=== PATIENT | female | born 1965 | race American Indian/Alaskan Native ===

== ENCOUNTER 2019-09-12 13:09 | Emergency (ER) | payer MEDICAID, OTHER ==
--- NOTE | 2019-09-12 14:28 | EDM.PDOC ---
ED HPI GENERAL MEDICAL PROBLEM - General Chief Complaint: Upper Extremity Injury/Pain Stated Complaint: POSSIBLE WRIST CRACK Time Seen by Provider: 09/12/19 13:44 Source of Information: Reports: Patient, RN - History of Present Illness INITIAL COMMENTS - FREE TEXT/NARRATIVE: 53-year-old female who presents to ER with left wrist pain. Patient reports slipping on ice at [facility] one day ago and landing on an outstretched left hand. She states she was able to use her left hand after the incident. Pain and swelling was noted when she woke up from bed after the incident. She rates it as a 03/09 and is wearing a sling she had at home. She has tried ibuprofen with little relief. She denies any prior injury to her left wrist/hand. She denies any numbness or tingling. She is not able to bear weight on her left hand/wrist at this time. Left Wrist Pain Score (Numeric/FACES): 10 - Related Data Allergies Allergy/AdvReac Type Severity Reaction Status Date / Time Penicillins Allergy Anaphylactic Verified 09/12/19 13:43 Shock Past Medical History Musculoskeletal History: Reports: Fibromyalgia Psychiatric History: Reports: Depression Social & Family History - Tobacco Use Smoking Status *Q: Current Every Day Smoker Years of Tobacco use: 20 Packs/Tins Daily: 0.7 Second Hand Smoke Exposure: Yes - Recreational Drug Use Recreational Drug Use: No Review of Systems - Review of Systems Review Of Systems: Comprehensive ROS is negative, except as noted in HPI. ED EXAM, GENERAL - Physical Exam Exam: See Below Exam Limited By: No Limitations General Appearance: Alert, Moderate Distress Peripheral Pulses: 3+: Brachial (L), Radial (L) Extremities: Normal Capillary Refill, Joint Swelling (of left wrist), Limited Range of Motion (of the left wrist due to pain) Neurological: Alert, Oriented, No Motor/Sensory Deficits Psychiatric: Normal Affect, Normal Mood Skin Exam: Warm, Intact Course - Vital Signs Last Recorded V/S: Last Vital Signs Temp 97.4 F 09/12/19 13:39 Pulse 78 09/12/19 13:39 Resp 18 09/12/19 13:39 BP 122/75 09/12/19 13:39 Pulse Ox 93 L 09/12/19 13:39 - Radiology Interpretation Free Text/Narrative:: Xray of Left Hand Degenerative joint disease at the first carpometacarpal joint and negative for a fracture Xray of the left wrist Mild soft Tissue swelling. No acute bony abnormality - Re-Assessments/Exams Free Text/Narrative Re-Assessment/Exam: Reviewed Xray results with patient. Wrist splint applied and patient reports relief. . Encouraged Ice/heat application intermittently. More instructions included in AVS. Departure - Departure Time of Disposition: 14:26 Disposition: Home, Self-Care 01 Condition: Fair Clinical Impression: Fall from ground level Wrist injury Qualifiers: Encounter type: initial encounter Laterality: left Qualified Code(s): S69.92XA - Unspecified injury of left wrist, hand and finger(s), initial encounter - Discharge Information Instructions: Wrist Splint, Adult, [id number] Referrals: PCP,None [Primary Care Provider] - Forms: ED Department Discharge Additional Instructions: Instructions included in the AVS Sepsis Event Note - Evaluation Sepsis Screening Result: No Definite Risk - Focused Exam Vital Signs: Vital Signs Temp Pulse Resp BP Pulse Ox 09/12/19 13:39 97.4 F 78 18 122/75 93 L Date Exam was Performed: 09/12/19 Time Exam was Performed: 15:07
== END 2019-09-12 14:32 | disposition home or self-care (01) ==
LOC: DL.ED 13:09
DX: S69.92XA Unspecified injury of left wrist, hand and finger(s), initial encounter (principal); F17.210 Nicotine dependence, cigarettes, uncomplicated; Z88.0 Allergy status to penicillin; W00.0XXA Fall on same level due to ice and snow, initial encounter; Y92.89 Other specified places as the place of occurrence of the external cause
CPT/HCPCS: 73110-LT; 73130-LT; 99283-25

== ENCOUNTER 2021-05-04 12:00 | Emergency (ER) | payer MEDICAID | END 2021-05-04 13:45 | disposition left against medical advice (07) | LOC: DL.ED 12:00 | DX: T63.441A Toxic effect of venom of bees, accidental (unintentional), initial encounter (principal); Z53.21 Procedure and treatment not carried out due to patient leaving prior to being seen by health care provider ==

== ENCOUNTER 2022-04-13 05:40 | Day surgery (SDC) | payer MEDICAID ==
[~2022-04-13 05:40] MED LIST: Sodium Chloride 0.9% 10 ML Syringe FLUSH SCH
[2022-04-13] MEDS ORDERED: Midazolam 1 MG/ML 2 ML SDV IV ONE (05:41)
[2022-04-13] MEDS ORDERED: fentaNYL 100 MCG/2 ML SDV IV ONE (05:41)
[2022-04-13] MEDS ORDERED: Sodium Chloride 0.9% 10 ML Syringe FLUSH PRN (06:00)
[2022-04-13] MEDS ORDERED: Dextrose 5%-0.45% NaCl 1,000 ML IV SCH (06:00)
== END 2022-04-13 08:40 | disposition home or self-care (01) ==
LOC: DL.ENDO 05:40
PROVIDERS: ATTEND Internal Medicine Gastroenterology
DX: K31.89 Other diseases of stomach and duodenum (principal); F17.210 Nicotine dependence, cigarettes, uncomplicated; I10 Essential (primary) hypertension; E78.5 Hyperlipidemia, unspecified; M81.0 Age-related osteoporosis without current pathological fracture; I25.10 Atherosclerotic heart disease of native coronary artery without angina pectoris; Z88.0 Allergy status to penicillin; Z20.822 Contact with and (suspected) exposure to COVID-19; Z79.899 Other long term (current) drug therapy; Z79.02 Long term (current) use of antithrombotics/antiplatelets
CPT/HCPCS: 00731; 43239; 87077; 87635; J2250; J3010; J7042; U0002

== ENCOUNTER 2022-04-14 06:00 | Day surgery (SDC) | payer MEDICAID ==
[~2022-04-14 06:00] MED LIST changes: +Dextrose 5%-0.45% NaCl 1,000 ML IV SCH; -Sodium Chloride 0.9% 10 ML Syringe FLUSH SCH
[2022-04-14] MEDS ORDERED: Lidocaine 1% 5 ML VIAL ONE (06:01)
[2022-04-14] MEDS ORDERED: Propofol 200 MG/20 ML SDV IV ONE (06:01)
== END 2022-04-14 09:35 | disposition home or self-care (01) ==
LOC: DL.ENDO 06:00
PROVIDERS: ATTEND Internal Medicine Gastroenterology
DX: Z12.11 Encounter for screening for malignant neoplasm of colon (principal); K63.5 Polyp of colon; I10 Essential (primary) hypertension; E78.5 Hyperlipidemia, unspecified; M81.0 Age-related osteoporosis without current pathological fracture; K21.9 Gastro-esophageal reflux disease without esophagitis; F17.210 Nicotine dependence, cigarettes, uncomplicated; I25.10 Atherosclerotic heart disease of native coronary artery without angina pectoris; Z88.0 Allergy status to penicillin; Z79.02 Long term (current) use of antithrombotics/antiplatelets; Z79.899 Other long term (current) drug therapy
CPT/HCPCS: 00812; 45385; J2704; J7042

== ENCOUNTER 2022-07-23 11:11 | Emergency (ER) | payer MEDICAID ==
[2022-07-23] MEDS ORDERED: methylPREDNISolone Sodium Succinate 125 MG/2 ML SDV IVPUSH ONE (12:54)
[2022-07-23] MEDS ORDERED: Sodium Chloride 0.9% 10 ML Syringe FLUSH PRN (12:54)
[2022-07-23] MEDS ORDERED: Acetaminophen/HYDROcodone 325-10 MG Tab PO ONE (12:55)
[2022-07-23 13:26] LABS: ANION GAP 11.2 mEq/L (7-13); CHLORIDE,CL 105 mmol/L (98-107); SODIUM,NA 141 mmol/L (136-145)
[2022-07-23 13:32] LABS: ESTIMATED GFR 69 mL/min (>=60)
[2022-07-23] MEDS ORDERED: Colchicine 0.6 MG Tab PO ONE (13:59)
== END 2022-07-23 14:17 | disposition home or self-care (01) ==
LOC: DL.ED 11:11
DX: M10.9 Gout, unspecified (principal); E78.00 Pure hypercholesterolemia, unspecified; I10 Essential (primary) hypertension; F17.210 Nicotine dependence, cigarettes, uncomplicated; Z88.0 Allergy status to penicillin; Z79.899 Other long term (current) drug therapy
CPT/HCPCS: 36415; 80053; 84550; 85025; 86140; 96374; 99283; A9270; J2930; J3490